=== PATIENT | female | born 1965 | race Caucasian/White ===

== ENCOUNTER → 2017-12-11 13:40 | Outpatient (CLI) | payer OTHER, SELFPAY ==
--- NOTE | 2017-12-11 13:42 | DI.RAD.S_ITS ---
PROCEDURE: XR ELBOW LT MIN 3V INDICATIONS: Left elbow contusion TECHNIQUE: 3 views of the elbow were acquired. COMPARISON: None. FINDINGS: Bones: No fractures or dislocations. No suspicious bony lesions. Benign appearing periosteal reaction along the lateral aspect of the distal humerus, likely sequelae of old injury. Soft tissues: No elbow joint effusion. No suspicious soft tissue calcifications. IMPRESSION: 1. No fracture or dislocation. 2. Benign appearing periosteal reaction along the lateral aspect of the distal humerus, presumably related to old injury. Dictated by: Tony Valera M.D. on 12/11/2017 at 15:19 Approved by: Tony Valera M.D. on 12/11/2017 at 15:22
== END ==
PROVIDERS: Visit Provider Physician Assistant
DX: S50.02XA Contusion of left elbow, initial encounter (principal)
CPT/HCPCS: 73080

== ENCOUNTER → 2019-10-26 14:56 | Outpatient (CLI) | payer OTHER, SELFPAY ==
--- NOTE | 2019-10-26 | DI.RAD.S_ITS ---
PROCEDURE: XR HAND LT 2V INDICATIONS: OSTEOMYELITIS OF HAND TECHNIQUE: 2 views of the hand(s) acquired. COMPARISON: None. FINDINGS: Bones: No fracture. Mild to moderate 1st CMC and triscaphe joint degeneration. No focal osseous destruction. Diffuse interphalangeal degenerative spurring and sclerosis. No definite erosions are seen. Soft tissues: No suspicious soft tissue calcifications. IMPRESSION: Degenerative changes as above. No focal osseous destruction to suggest advanced osteomyelitis. If there is persistent clinical concern, continued short interval radiographic followup or contrast enhanced MRI could be performed to assess for early infection. Dictated by: Ravi Gooed M.D. on 10/26/2019 at 17:08 Approved by: Ravi Goode M.D. on 10/26/2019 at 17:11
--- NOTE | 2019-10-26 | DI.RAD.S_ITS ---
PROCEDURE: XR HAND RT 2V INDICATIONS: OSTEOMYELITIS OF HAND TECHNIQUE: 2 views of the hand(s) acquired. COMPARISON: None. FINDINGS: Bones: No fracture. Severe 1st CMC and triscaphe joint degeneration. Diffuse inter phalangeal osteophytic spurring. Soft tissues: No suspicious soft tissue calcifications. 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 No focal osseous destruction to suggest advanced osteomyelitis. If there is persistent clinical concern, continued short interval radiographic followup or contrast enhanced MRI could be performed to assess for early infection. Dictated by: Ravi Goode M.D. on 10/26/2019 at 17:06 Approved by: Ravi Goode M.D. on 10/26/2019 at 17:08
[2019-10-26 15:58] LABS: Add Manual Diff / Slide Review NO; Basophils Absolute Auto 100 /uL (0-100); Basophils Percent Auto 0.9 % (0-2); Eosinophils Absolute Auto 100 /uL (0-450); Eosinophils Percent Auto 1.4 % (2-4); Hematocrit 35.3 % (36-46); Hemoglobin 11.7 g/dL (12.0-16.0); Lymphocytes Absolute Auto 1500 /uL (1100-4500); Lymphocytes Percent Auto 24.2 % (25-40); Mean Corpuscular HGB Conc 33.1 % (30-36); Mean Corpuscular Hemoglobin 29.8 PG (26-34); Monocytes Absolute Auto 600 /uL (0-900); Monocytes Percent Auto 10.1 % (3-14); Neutrophils Absolute Auto 3900 /uL (1500-7000); Neutrophils Percent Auto 63.4 % (50-75); Platelet Count 260 X10^3/uL (150-400); Red Blood Cell Count 3.92 X10^6/uL (4.0-5.2); Red Cell Distribution Width 13.4 % (11.6-14.8); White Blood Cell Count 6.1 X10^3/uL (4.5-11.0)
[2019-10-26 16:45] LABS: Alanine Aminotransferase 14 IU/L (<35); Albumin 4.1 g/dL (3.5-5.0); Albumin Globulin Ratio 1.6 (1.0-2.8); Alkaline Phosphatase 88 U/L (38-126); Aspartate Aminotransferase 24 IU/L (14-36); BUN Creatinine Ratio 25.4 (6-22); Bilirubin Total 0.5 mg/dL (0.2-1.3); Blood Urea Nitrogen 17 mg/dL (7-17); Calcium 9.3 mg/dL (8.4-10.2); Carbon Dioxide 27 mmol/L (22-32); Chloride 104 mmol/L (98-107); Erythrocyte Sedimentation Rate 7 MM/HR (0-20); Estimated Glomerular Filt Rate > 60.0 mL/min (>60); Globulin 2.6 g/dL (1.7-4.1); Glucose 93 mg/dL (70-100); HEMOLYSIS < 15 (0-50); Sodium 138 mmol/L (137-145); Total Protein 6.7 g/dL (6.3-8.2)
[2019-10-26 16:50] LABS: C-Reactive Protein Quant < 0.5 mg/dL (<1.0); Rheumatoid Factor < 8.6 IU/mL (<12.0)
[2019-10-28 21:39] LABS: CCP Antibodies IgG/IgA 2 units (0-19)
== END ==
PROVIDERS: PCP Family Medicine; Referring Provider Internal Medicine; Visit Provider Internal Medicine
DX: M86.9 Osteomyelitis, unspecified (principal)
CPT/HCPCS: 36415; 73120; 80053; 85025; 85651; 86140; 86200; 86430

== ENCOUNTER → 2019-11-15 13:52 | Outpatient (CLI) | payer OTHER, MEDICAID, SELFPAY ==
[2019-11-16 07:40] LABS: COVID19 Sendout Not Detected (Not Detect)
== END ==
PROVIDERS: PCP Family Medicine; Visit Provider Physician Assistant
DX: Z11.59 Encounter for screening for other viral diseases (principal)
CPT/HCPCS: 87635

== ENCOUNTER 2019-12-02 10:13 | Outpatient (CLI) | payer OTHER, MEDICAID, SELFPAY | END 2019-12-02 14:45 | disposition home or self-care (01) | PROVIDERS: PCP Internal Medicine; Referring Provider Internal Medicine; Visit Provider Internal Medicine | DX: M86.9 Osteomyelitis, unspecified (principal) | CPT/HCPCS: 95886; 95911 ==

== ENCOUNTER → 2020-01-10 14:28 | Outpatient (CLI) | payer OTHER, MEDICAID, SELFPAY | PROVIDERS: PCP Internal Medicine; Referring Provider Internal Medicine; Visit Provider Internal Medicine | DX: Z23 Encounter for immunization (principal) | CPT/HCPCS: 90471; 90686 ==

== ENCOUNTER → 2020-06-14 17:28 | Outpatient (CLI) | payer OTHER, MEDICAID, SELFPAY ==
--- NOTE | 2020-06-14 17:30 | DI.MRI.S_ITS ---
PROCEDURE: MR WRIST RT WO CON INDICATIONS: CTS TECHNIQUE: Noncontrast coronal proton density fast spin echo and T2 fast spin echo with fat saturation; coronal 3-D gradient echo, axial T1 spin echo and T2 fast spin echo with fat saturation, sagittal T1 spin echo through the wrist. COMPARISON: [facility], CR, XR HAND RT 2V, 10/26/2019, 15:03. FINDINGS: Image quality: Excellent. Bones and cartilage: The carpal bones are normally aligned. No bone marrow contusions or fractures. No evidence for avascular necrosis. 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 In the absence of intra-articular contrast, the extrinsic carpal ligaments are not well identified. On sagittal images, the pisohamate ligament appears intact. Triangular fibrocartilage complex: The triangular fibrocartilage appears intact. The adjacent meniscal homolog appears normal in the absence of intra-articular contrast. The extensor carpi ulnaris tendon is normal in location and morphology. There is diffuse T2 hyperintensity surrounding the flexor tendons within the carpal tunnel. There is bowed appearance of the transverse carpal ligament, and median nerve demonstrates T2 hyperintensity, with possible slight enlargement. Constellation of findings compatible with carpal tunnel syndrome in the appropriate clinical setting. There is questionable subtle muscle edema involving the thenar musculature seen on image 8/9. No definite atrophy. The ulnar nerve appears normal within Guyon's canal. There is minimal extensor carpi radialis longus and brevis tenosynovitis. No soft tissue ganglion cysts. IMPRESSION: Constellation of findings compatible with carpal tunnel syndrome as detailed above. Minimal extensor carpi radialis longus brevis tenosynovitis. 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 on 06/15/2020 at 9:42 Approved by: Ravi Goode M.D. on 06/15/2020 at 9:49
--- NOTE | 2020-06-14 17:30 | DI.MRI.S_ITS ---
PROCEDURE: MR WRIST LT WO CON INDICATIONS: CTS Left wrist pain post carpal tunnel surgery TECHNIQUE: Noncontrast coronal proton density fast spin echo and T2 fast spin echo with fat saturation; coronal 3-D gradient echo, axial T1 spin echo and T2 fast spin echo with fat saturation, sagittal T1 spin echo through the wrist. COMPARISON: [facility], MR, MR WRIST RT WO CON, 06/14/2020, 17:42. FINDINGS: Image quality: Excellent. Bones and cartilage: The carpal bones are normally aligned. No bone marrow contusions or fractures. No evidence for avascular necrosis. 1st CMC osteoarthritis, severe. Carpal ligaments: The scapholunate and lunotriquetral ligaments appear intact. In the absence of intra-articular contrast, the extrinsic carpal ligaments are not well identified. On sagittal images, the pisohamate ligament appears intact. Triangular fibrocartilage complex: The triangular fibrocartilage appears intact. The adjacent meniscal homolog appears normal in the absence of intra-articular contrast. The extensor carpi ulnaris tendon is normal in location and morphology. There is diffuse T2 hyperintensity surrounding the flexor tendons within the carpal tunnel and bowed appearance of the transverse carpal ligament/flexor retinaculum. There is also enlargement of the median nerve with T2 hyperintense appearance of the fascicles. Constellation of findings compatible with carpal tunnel syndrome. There is somewhat discontinuous appearance of the transverse carpal ligament seen on image 14/8 raising possibility of postsurgical sequela image 14/8. No definite thenar musculature atrophy is seen although questionable edema. The ulnar nerve appears normal within Guyon's canal. Extensor carpi radialis longus tenosynovitis is noted. No soft tissue ganglion cysts. IMPRESSION: Constellation of findings compatible with carpal tunnel syndrome, in the appropriate clinical setting. Superimposed postsurgical sequela as above. Extensor carpi radialis longus tenosynovitis Approved by: Ravi Goode M.D. on 06/15/2020 at 9:55
== END ==
PROVIDERS: Referring Provider Physical Medicine & Rehabilitation; Visit Provider Physical Medicine & Rehabilitation
DX: G56.03 Carpal tunnel syndrome, bilateral upper limbs (principal)
CPT/HCPCS: 73221

== ENCOUNTER → 2020-12-28 14:58 | Outpatient (CLI) | payer OTHER, MEDICAID, SELFPAY | PROVIDERS: Referring Provider Internal Medicine; Visit Provider Internal Medicine | DX: Z23 Encounter for immunization (principal) | CPT/HCPCS: 90471; 90686 ==

== ENCOUNTER → 2022-02-06 12:13 | Outpatient (CLI) | payer OTHER, MEDICAID, SELFPAY | PROVIDERS: Referring Provider Internal Medicine; Visit Provider Internal Medicine | DX: Z23 Encounter for immunization (principal) | CPT/HCPCS: 90471; 90686 ==

== ENCOUNTER → 2022-12-12 11:45 | Outpatient (CLI) | payer OTHER, SELFPAY | PROVIDERS: Referring Provider Family Medicine; Visit Provider Family Medicine | DX: Z23 Encounter for immunization (principal) | CPT/HCPCS: 90471; 90686 ==